=== PATIENT | male | born 1990 | race Caucasian/White ===

== ENCOUNTER 2017-10-14 12:38 | Emergency (ER) | END 2017-10-14 15:03 | disposition home or self-care (01) ==

== ENCOUNTER 2018-06-13 06:53 | Emergency (ER) | payer MEDICAID ==
[~2018-06-13] VITALS: Ht 167.6 cm; Wt 70.0 kg
[~2018-06-13 06:53] MED LIST: ACET500C5 PO; CLIN300C10 PO; IBUP-1542 PO
[2018-06-13 06:55] VITALS: BP 149/75; PULSE 97; RESP 20; Ht 167.6 cm; Wt 70.0 kg
[2018-06-13] MEDS ORDERED: IBUPROFEN 600 MG TAB PO ONE (08:30)
[2018-06-13] MEDS ORDERED: HYDROCODONE/APAP (5/325) TAB PO ONE (08:30)
[2018-06-13] MEDS ORDERED: CEPHALEXIN 500 MG CAP PO ONE (08:30)
[2018-06-13] MEDS ORDERED: TRIMETHOPRIM/SULFAMETHOX (DS) TAB PO ONE (08:30)
[2018-06-13] MEDS ORDERED: TRAM50TA2 PO (10:00)
[2018-06-13] MEDS ORDERED: SULF1TAB31 PO (10:00)
[2018-06-13] MEDS ORDERED: CEPH500C PO (10:00)
--- NOTE | 2018-06-13 10:07 | ERD ---
ER Documentation Chief Complaint Chief Complaint Complains of left arm pain x 4 days HPI 28-year-old male presents with left arm pain worsening over the last week. Patient has a history significant for ORIF 2014. He has had an open wound on the lateral epicondyle area intermittently for the last year. He is responded to antibiotics in the past. Lasix antibiotics proxy 1 year ago. He did see his primary doctor who has submitted authorization for orthopedic consult which is scheduled for the next 2 weeks. He had his surgery at [facility]. Denies any fevers, vomiting, shortness of breath, additional symptoms. ROS All systems reviewed and are negative except as per history of present illness. Medications Home Meds Active Scripts Cephalexin* (Cephalexin*) 500 Mg Capsule, 500 MG PO Q6 for 7 Days, #28 CAP Prov:NEIDA HU MD 06/13/18 Sulfamethoxazole/Trimethoprim* (Bactrim Ds* Tablet) 1 Each Tablet, 1 TAB PO BID for 7 Days, #14 TAB Prov:NEIDA HU MD 06/13/18 Tramadol HCl (Tramadol HCl) 50 Mg Tablet, 50 MG PO Q4 PRN for PAIN, #18 TAB Prov:NEIDA HU MD 06/13/18 Clindamycin Hcl* (Clindamycin Hcl*) 300 Mg Capsule, 300 MG PO TID for 10 Days, CAP Prov:NOVA AMARAL PA-C 10/14/17 Acetaminophen* (Tylophen*) 500 Mg Capsule, 1 CAP PO Q6H PRN for PAIN AND OR ELEVATED TEMP, #30 CAP Prov:DENISHA SALAZARC 06/28/16 Ibuprofen* (Motrin*) 600 Mg Tab, 600 MG PO Q6, #30 TAB Prov:DENISHA SALAZARC 06/28/16 Allergies Allergies: Coded Allergies: No Known Allergy (Verified , 10/14/17) PMhx/Soc History of Surgery: Yes (left arm,hip,leg surgery 2014) Hx Alcohol Use: Yes (occasionally) Hx Substance Use: No Hx Tobacco Use: No Smoking Status: Never smoker FmHx Family History: No diabetes, No coronary disease, No other Physical Exam Vitals Vital Signs Date Temp Pulse Resp B/P (MAP) Pulse Ox O2 O2 Flow FiO2 Time Delivery Rate 06/13/18 100.2 97 20 149/75 100 06:55 (99) Physical Exam Const: No acute distress Head: Atraumatic Eyes: Normal Conjunctiva ENT: Normal External Ears, Nose and Mouth. Neck: Full range of motion. No meningismus. Resp: Clear to auscultation bilaterally Cardio: Regular rate and rhythm, no murmurs Abd: Soft, non tender, non distended. Normal bowel sounds Skin: No petechiae or rashes Back: No midline or flank tenderness Ext: No cyanosis, or edema. Left upper extremity should with chronic swelling and tenderness over the lateral epicondyle and left elbow joint primarily. No erythema or induration appreciated. There is approximately 4 mm open wound which appears chronic. There is no significant purulent discharge. Left upper extremity is otherwise neurovascular intact due to chronic deformity and chronic decreased range of motion. Neur: Awake and alert Psych: Normal Mood and Affect Results 24 hrs Current Medications Medications Dose Sig/Katie Start Time Status Last (Trade) Ordered Route PRN Stop Time Admin Dose Reason Admin 1 tab ONCE ONCE 06/13/18 DC 06/13/18 Acetaminophen PO 08:30 08:43 / 06/13/18 08:33 Hydrocodone Bitart ([place] (5/325)) Ibuprofen 600 mg ONCE ONCE 06/13/18 DC 06/13/18 (Motrin) PO 08:30 08:44 06/13/18 08:33 1 tab ONCE ONCE 06/13/18 DC 06/13/18 Trimethoprim/ PO 08:30 08:44 06/13/18 08:33 Sulfamethoxaz ole (Bactrim (Ds)) Cephalexin 500 mg ONCE ONCE 06/13/18 DC 06/13/18 (Keflex) PO 08:30 08:44 06/13/18 08:33 Procedures/MDM X-ray left Elbow 3V Interpreted by me: Fat Pads: Normal Bones: No fracture Joints: No dislocation Foreign body: None impression no change in ORIF left elbow with chronic callus deformity since 2016. No new hardware malfunction. Impression-status post ORIF with healing fracture and callus no change since 2016 Patient was given [place] 5 mg, Bactrim and Keflex. Patient presents with a chronic open wound of his left elbow status post ORIF 2 years ago. There is no evidence of acute fracture, however, function, sepsis, given chronicity of patient's complaints and wound and condition outpatient follow-up with treating orthopedist as advised. He does have an appointment scheduled and is advised to keep that appointment. He should otherwise return for fevers, worsening redness, shortness of breath, additional new worsening symptoms otherwise with orthopedist as directed. We will treat empirically with Bactrim, Keflex and tramadol for pain. Departure Diagnosis: Primary Impression: Pain of left arm Condition: Stable Patient Instructions: Post Op Wound Check, Infection, Post Op Wound Check, Pain Referrals: DOCTOR,NOT ON STAFF (PCP) Additional Instructions: No new complications of hardware identified on x-ray. See treating orthopedist as scheduled for evaluation for removal of hardware or additional surgery. Recheck otherwise for fevers, new worsening symptoms. NEIDA HU MD Jun 13, 2018 10:07
== END 2018-06-13 10:16 | disposition home or self-care (01) ==
LOC: FTE 06:53
DX: M79.602 Pain in left arm (principal)
CPT/HCPCS: 73080; Z7502; Z7610